=== PATIENT | male | born 1950 | race Caucasian/White ===

== ENCOUNTER 2023-10-17 09:36 | Inpatient (IN) ==
--- NOTE | 2023-10-15 11:15 | Anesthesiology Consultation ---
Date of Service October 15, 2023 Assessment & Plan (1) Encounter for pre-operative examination: - Infectious disease screening: Per assessment on 10/10/23: No known infectious disease contacts or current infectious disease symptoms. No noted Covid positive test result in past 90 days. - PCP visit (10/15/23): "The patient has been examined.. there are no medical condition known to me that preclude the patient from having the planned surgery ." - Preop testing: No surgeon-ordered BMP/coags received with preop testing, will order BMP/coags for DOS. Chart Review Chart Review: Acceptable Risk for Surgery (pending preop labs DOS) and Patient NOT seen in Pre Admission Testing History Surgery Operation Date: 10/17/23 11:15 Proposed Procedures p L3-S1 Decompression and Fusion, Spinal Cord Monitoring - Willy Brooke DO Height/Weight Height: 5 ft 8 in Weight: 86.183 kg Allergies Allergy/AdvReac Type Severity Reaction Status Date / Time No Known Allergies Allergy Verified 10/10/23 11:19 Medications Home Medications Medication Instructions Recorded Confirmed Last Taken acetaminophen 500 mg tablet 1,000 mg PO QAM 10/10/23 10/10/23 Unknown (Tylenol Extra Strength) cetirizine 10 mg chewable tablet 10 mg PO DAILY PRN Congestion 10/10/23 10/10/23 Unknown (Zyrtec) fenofibrate micronized 200 mg 200 mg PO QAM 10/10/23 10/10/23 Unknown capsule lamotrigine 200 mg tablet 200 mg PO QAM 10/10/23 10/10/23 Unknown meloxicam 15 mg tablet 15 mg PO DAILY 10/10/23 10/10/23 Unknown Past Medical History Medical History Spinal stenosis Prediabetes Diet controlled Skin cancer s/p removal from several locations Osteoarthritis Seasonal allergies Hyperlipidemia Sleep apnea CPAP Seizure x2 total, most recent 2012 Past Family History Family History Mother Diabetes Past Surgical History Surgical History Hx of LASIK History of colonoscopy H/O prostate biopsy Small areas of concern "Level 1 of 5" Under surveillance History of endoscopic sinus surgery Hx of oral surgery tooth extractions History of tonsillectomy Social History Smoking Status: Never smoker Do You Dip or Chew Tobacco: No Hx Alcohol Use: Yes Alcohol type: wine alcohol intake frequency: a few times a week Hx Substance Use: No substance use type: does not use Testing Laboratory Results 09/05/23 WBC 8.2 H/H 13.5/39.7 PLATELETS 307 UA negative URINE CULTURE no growth Electrocardiogram Date: 09/05/23 Findings: + NSR @ (63) Chest X-Ray Date: 09/04/23 Findings: + NAD
[~2023-10-17 09:36] MED LIST: ACETAMINOPHEN 500 MG TAB PO SCH; CeleBREX 200 MG CAP PO SCH; GABAPENTIN 300 MG CAP PO SCH; LR 60ML/HR IV SCH; ceFAZolin 2000MG 2,000 MG/15 ML SYR IV SCH
[2023-10-17] MEDS ORDERED: PROPOFOL IV EMULSION 10 MG/ML 20 ML VIAL IV ONE (10:42)
[2023-10-17] MEDS ORDERED: MIDAZOLAM HCL 1 MG/ML 2ML VIAL ONE (10:42)
[2023-10-17] MEDS ORDERED: DEXAMETHASONE SOD INJ 4 MG/ML VIAL ONE (10:42)
[2023-10-17] MEDS ORDERED: ONDANSETRON INJ 2 MG/ML 2 ML VIAL ONE (10:42)
[2023-10-17] MEDS ORDERED: LIDOCAINE 2% 2 ML VIAL/AMP(20MG/ML) INFIL ONE ×2 (10:42→10:44)
[2023-10-17 10:43] LABS: BUN Creatinine Ratio 14.8 (10-20); Calcium 10.1 mg/dl (8.6-10.3); Creatinine Clr Calc Pharmacy 53.3 ml/min; Est GFR (Non-African American) 54.4 ml/min; Potassium 4.1 mmol/L (3.5-5.1)
[2023-10-17] MEDS ORDERED: fentaNYL citrate PF 100 MCG/2 ML VIAL ONE ×2 (10:43→12:33)
[2023-10-17] MEDS ORDERED: ROCURONIUM BROMIDE 10 MG/ML 5 ML VIAL IV ONE ×10 (10:44)
[2023-10-17 10:51] LABS: Partial Thromboplastin Time 26.8 Seconds (21.0-31.0); Prothrombin Time 11.4 Seconds (9.0-12.0)
--- NOTE | 2023-10-17 11:26 | History & Physical Bridge Note ---
Date of Service October 17, 2023 History & Physical Bridge Note I have examined the patient, reviewed the History & Physical and in the interval since the performance of the History & Physical I have noted the following changes of clinical significance: no changes noted
--- NOTE | 2023-10-17 11:27 | History & Physical Report ---
Date of Service October 17, 2023 Assessment & Plan (1) Neurogenic claudication due to lumbar spinal stenosis: Plan: L3-S1 decompression and fusion History of Present Illness Chief Complaint: Chronic back and leg pain Primary Care Provider: NO PCP This is a 73-year-old male who presents with chronic persistent back and leg pain after failing course of nonoperative care is here for surgical invention. Allergies Allergy/AdvReac Type Severity Reaction Status Date / Time No Known Allergies Allergy Verified 10/17/23 10:33 Home Medications Medication Instructions Recorded Confirmed Type acetaminophen 500 mg tablet 1,000 mg PO QAM 10/10/23 10/17/23 History (Tylenol Extra Strength) cetirizine 10 mg chewable tablet 10 mg PO DAILY PRN Congestion 10/10/23 10/17/23 History (Zyrtec) fenofibrate micronized 200 mg 200 mg PO QAM 10/10/23 10/17/23 History capsule lamotrigine 200 mg tablet 200 mg PO QAM 10/10/23 10/17/23 History meloxicam 15 mg tablet 15 mg PO DAILY 10/10/23 10/17/23 History Past Med/Surg History Medical History Spinal stenosis Prediabetes Diet controlled Skin cancer s/p removal from several locations Osteoarthritis Seasonal allergies Hyperlipidemia Sleep apnea CPAP Seizure x2 total, most recent 2012 Surgical History Hx of LASIK History of colonoscopy H/O prostate biopsy Small areas of concern "Level 1 of 5" Under surveillance History of endoscopic sinus surgery Hx of oral surgery tooth extractions History of tonsillectomy Family History Mother Diabetes Social History Smoking Status: Never smoker Second Hand Exposure: No; Do You Dip or Chew Tobacco: No; Tobacco Cessation Education Requested by Patient: No Hx Alcohol Use: Yes Alcohol type: wine Hx Substance Use: No Preferred Language: Mexican Communication Ability: Effective Infirmary Attendant Required: No Beliefs That Will Affect Care: None Current Living Situation: Spouse Other Information That Helps Us Care for You: No Feels Safe at Home: Yes Safety Concerns: Feels Safe At This Time Assistive Devices: CPAP, Glasses and Hearing Aid - Bilateral Physical Exam Physical Exam: Patient is alert and oriented Heart regular rhythm Lungs clear Results & Data Results & Data Vital Signs (Past 12 Hours) Vital Signs Temp Pulse Resp BP Pulse Ox O2 Del Method 10/17/23 10:27 36.9 C 78 20 139/103 H 96 Room Air
[2023-10-17] MEDS ORDERED: ePHEDrine sulfate 50 MG/ML AMP IV PRN (11:31)
[2023-10-17] MEDS ORDERED: ATROPINE SULFATE 0.1 MG/ML 10ML SYR IV PRN (11:31)
[2023-10-17] MEDS ORDERED: PROMETHAZINE HCL 12.5 MG in SODIUM CHLORIDE 0.9% 50 ML IV PRN ×2 (11:31→15:51)
[2023-10-17] MEDS ORDERED: BUPIVACAINE/EPINEPHRINE 0.25% 1:200,000 30 ML VIAL ONE (11:40)
[2023-10-17] MEDS ORDERED: ceFAZolin 330 MG/ML 1 GM VIAL ONE (11:40)
[2023-10-17] MEDS ORDERED: SUGAMMADEX SODIUM 200 MG/2 ML VIAL IV ONE (12:26)
[2023-10-17] MEDS ORDERED: PHENYLEPHRINE HCL 10 MG/ML VIAL ONE ×2 (12:47→13:34)
[2023-10-17] MEDS ORDERED: FLOSEAL HEMOSTATIC MATRIX 10ML TOP ONE (12:51)
[2023-10-17] MEDS ORDERED: ESMOLOL HCL INJ 10 MG/ML 10ML VIAL IV ONE (13:55)
--- NOTE | 2023-10-17 14:31 | Operative Report ---
Post Operative Report Pre & Post Diagnosis Operation Date: 10/17/23 11:15 Pre-Op Diagnosis: Lumbar Region Spinal Stenosis with Neurogenic Claudication Spondylolisthesis L5-S1 Post-Op Diagnosis: Same I identified the patient and participated in the time-out.: Yes Procedure Operation Date: 10/17/23 11:15 Actual Procedures #1 lumbar decompression bilaterally facetectomies and foraminotomies L2-3, L3- L4, L4-5 and L5-S1. #2 posterior spinal fusion L3-S1. #3 placed posterior segmental instrumentation L3-S1. #4 interbody fusion L3-L4 L4-5 and L5-S1. #6 placement of Spira 13 x 26 mm at L3-L4, 13 x 26 mm at L4-L5 and 9 x 26 mm at L5- S1. #6 placement locally harvested morselized autograft and posterior gutters. #7 placement of I factor interbody space and infuse collagen sponge bone mass graft in the posterior lateral gutters. Surgeon Willy Brooke, Fixed Wing Pilot Dakotah Felton Estimated Blood Loss 400 Findings Consistent with Post-Op Diagnosis Specimens None Indications This is a 73-year-old male who presents above-mentioned diagnosis and failing course of nonoperative care is here for surgical invention. Description of Procedure Patient was met with identified informed consent obtained. Patient was then taken to the operative suite underwent patient placed in a prone position the [place] table top Jey frame. All bony prominences well-padded eyes inspected to ensure no external pressure placed upon them. This point the lumbar spine was prepped and draped in normal sterile fashion. Sharp dissection with assistance of Bovie cautery from down to and exposing the lamina transverse processes of L3 L4-5 and sacral ala bilaterally. Mondragon cephalad fashion complete laminectomy L5 L4 L3 partial and active L2 was performed including bilateral medial facetectomies and foraminotomies addressing severe spinal stenosis. Obvious bilateral pars defect at L5 was noted. After complete decompression pedicle screws were placed at L3-L4-L5 and S1 levels bilaterally with assistance of fluoroscopy and properly sized girma contoured and placed. By way of transforaminal approach on the left complete discectomy of L5-S1 was performed endplates curetted to subcortical bleeding bone and a 9 x 26 mm Spira cage with I factor tapped in position. Then proceeded to L4-L5 and again by way of a trans foraminal approach on the left pleat discectomy performed endplates guided to subcortical bleeding bone and a 13 x 26 mm Spira cage with I factor tapped in position. Lastly proceeded to L3-L4 and again by way of transforaminal approach on the left pleat discectomy performed endplates guided to subcortically and bone and a 13 x 26 mm Spira cage with I factor tapped in position. The rods were then compressed locked into final position bilaterally. The transverse processes of L3 L4-5 and sacral ala burred to subcortical bleeding bone. Infuse collagen sponge combined mass graft locally harvested morselized graft was placed in the posterior gutters. 15 round LADONNA drain inserted. The incision was then closed with 1 Vicryl to fascia 2-0 Vicryl subcutaneously and 4 Monocryl for final skin closure. Steri-Strips sterile dressing placed. Patient waken taken to PACU stable condition. Please note spinal cord monitoring was utilized at the procedure no changes noted. Lastly Dakotah Felton was present at the entire surgery involved the patient positioning complex portion of the surgery and final skin closure. I attest to the content of the Intraoperative Record and any orders documented therein. Any exceptions are noted below.
--- NOTE | 2023-10-17 15:01 | Fluoroscopy Report ---
FL lumbar spine 2-3V CLINICAL HISTORY: L3-S1 DECOMPRESSION AND FUSION COMPARISON STUDY: None. FLUOROSCOPY TIME: 31 seconds. Ka, r: 21.02 mGy FLUOROSCOPIC IMAGES: 3 FINDINGS: Fluoroscopy was provided during L3-L4, L4-L5 and L5-S1 discectomies with interbody spacer p lacement. Posterior decompression is noted. Bilateral pedicle screw fusion from L3 through S1 with in terconnecting rods is noted. Hardware is intact. IMPRESSION: Fluoroscopy provided during L3-S1 decompression and fusion. ACT 112: Negative or not required by law. Electronically signed by: Fili Suarez M.D. 10/17/2023 2:59 PM
--- NOTE | 2023-10-17 15:16 | Anesthesiology Progress Note ---
Date of Service October 17, 2023 Anesthesia Post Procedure Vital Signs Vital Signs: Temp Pulse Pulse Resp BP Pulse Ox O2 Del Method 10/17/23 15:10 66 16 145/91 H 100 Oxymask 10/17/23 15:00 72 14 149/87 H 100 Oxymask 10/17/23 14:51 36.2 C L 66 16 145/79 H 98 Oxymask 10/17/23 10:27 36.9 C 78 20 139/103 H 96 Room Air O2 Flow Rate 10/17/23 15:10 8 10/17/23 15:00 8 10/17/23 14:51 8 10/17/23 10:27 Transfer of Care Handoff Completed per policy Notes Mental Status: alert / awake / arousable Patient Amnestic to Procedure: Yes Nausea / Vomiting: adequately controlled Pain: adequately controlled Airway Patency, RR, SpO2: stable & adequate BP & HR: stable & adequate Hydration State: stable & adequate Anesthetic Complications: no major complications apparent and Pt Satisfied with anesthetic care
[2023-10-17] MEDS: HYDROmorphone INJ 1 MG/ML SYRINGE IV PRN ×2 (15:18→15:23)
[2023-10-17] MEDS ORDERED: DO NOT ADMINISTER PNEUMOCOCCAL VACCINE PRN (15:51)
[2023-10-17] MEDS ORDERED: DO NOT ADMINISTER FLU VACCINE PRN (15:51)
[2023-10-17] MEDS ORDERED: ACETAMINOPHEN 1,000 MG/100 ML VIAL IV PRN (15:51)
[2023-10-17] MEDS ORDERED: LORazepam 0.5 MG TAB PO PRN (15:51)
[2023-10-17] MEDS ORDERED: MAGNESIUM HYDROXIDE SUSP 30 ML UDC PO PRN (15:51)
[2023-10-17] MEDS ORDERED: ALUMINUM/MAGNESIUM SUSP 30 ML UDC PO PRN (15:51)
[2023-10-17] MEDS ORDERED: traMADol HCL 50 MG TABLET PO PRN (15:51)
[2023-10-17] MEDS ORDERED: ONDANSETRON 4 MG OD TAB PO PRN (15:51)
[2023-10-17] MEDS ORDERED: LORazepam 0.5 MG in SYRINGE 0.25 ML IV PRN (15:51)
[2023-10-17] MEDS ORDERED: hydrOXYzine HCl 25 MG TAB PO PRN (15:51)
[2023-10-17] MEDS ORDERED: METOCLOPRAMIDE HCL INJ 5 MG/ML 2 ML VIAL IV PRN (15:51)
[2023-10-17] MEDS ORDERED: HYDROmorphone INJ 1 MG/ML SYRINGE IV PRN (15:51)
[2023-10-17] MEDS ORDERED: NALOXONE HCL 0.4 MG/1 ML VIAL/CARP IV PRN (15:51)
[2023-10-17] MEDS ORDERED: ACETAMINOPHEN 500 MG TAB PO PRN (15:51)
[2023-10-17] MEDS ORDERED: HYDROmorphone INJ 0.5 MG/0.5 ML SYR IV PRN (15:51)
[2023-10-17] MEDS ORDERED: bisacodyL 10 MG SUPP PR PRN (15:51)
[2023-10-17] MEDS ORDERED: SOD PHOSPHATE/SOD BIPHOSPHATE ENEMA 132 ML BTL PR PRN (15:51)
[2023-10-17] MEDS ORDERED: FAMOTIDINE 20 MG TAB PO PRN (15:51)
[2023-10-17] MEDS ORDERED: diphenhydrAMINE Capsule 25 MG CAP PO PRN (15:51)
[2023-10-17] MEDS ORDERED: ONDANSETRON INJ 2 MG/ML 2 ML VIAL IV PRN (15:51)
[2023-10-17] MEDS ORDERED: LORATADINE 10 MG TAB PO PRN (16:15)
[2023-10-17] MEDS: LACTATED RINGER'S 1,000 ML IV SCH ×2 (17:14→20:02)
--- NOTE | 2023-10-17 17:35 | Hospitalist Consultation ---
Date of Consultation October 17, 2023 Assessment & Plan (1) Neurogenic claudication due to lumbar spinal stenosis: - Pain management, bowel regimen and DVT ppx per the primary team - PT/OT consults, pt is planning on outpatient therapy - Follow am CBC to monitor for acute blood loss, last hemoglobin was 13.5/39.7 per anesthesiology consultation with outpatient testing done on 09/05/23. Follow am labs (2) Prediabetes: -Diet controlled (3) Seizure: -Continue lamotrigine 200 mg daily, last seizure was in 2012 (4) Sleep apnea: -CPAP from home, respiratory to help set up tonight (5) Hyperlipidemia: -Continue fenofibrate daily DVT PPx: teds, scds Lines: 2 PIV CODE: Full code FEN/GI: Regular diet per primary service Dispo: From home, likely to remain in the hospital x 1-2 days Thank you for involving us in the care of Mr. Montgomery. If you have any questions or concerns please do not hesitate to call. At this time medicine will follow along. Supervising Physician Co-Signing Physician Notes Attending addendum: The patient was seen and examined in medical floor He is a status post L3-S1 lumbar decompression and fusion Remains drowsy secondary to medication and anesthetics On examination No apparent distress at rest Remains hemodynamically stable with clear chest and normal heart sounds without murmur Extremities no edema His labs and imaging studies reviewed Status post L3-S1 decompression and fusion Remains medically stable We will monitor labs and hemoglobin Agree with assessment plan as outlined above by Penny Alvarado History of Present Illness Reason for Consultation: Medical management Requesting Physician: Dr. Brooke Attending Physician: Willy Brooke DO History of Present Illness This is a 73-year-old male with PMHx of HLD, osteoarthritis, prediabetes, sleep apnea on CPAP, seizure disorder with his last seizure being in 2012 who present ed to the hospital with routine scheduled for L2-S1 lumbar decompression fusion by Dr. Brooke on 10/17/2023. Patient is falling asleep easily during our visit but awakens easily, his is present at bedside. He denies any significant pain, has some mild low back pain from the procedure, no numbness or tingling, is able to move his toes. Patient has tolerated a clear liquid diet for dinner without any difficulty, last bowel movement was yesterday. He is asking when his Lai catheter can be removed and we discussed that it would likely be tomorrow morning. He took all his morning medications as instructed. Allergies Allergy/AdvReac Type Severity Reaction Status Date / Time No Known Allergies Allergy Verified 10/17/23 10:33 Home Medications Medication Instructions Recorded Confirmed Type acetaminophen 500 mg tablet 1,000 mg PO QAM 10/10/23 10/17/23 History (Tylenol Extra Strength) cetirizine 10 mg chewable tablet 10 mg PO DAILY PRN Congestion 10/10/23 10/17/23 History (Zyrtec) fenofibrate micronized 200 mg 200 mg PO QAM 10/10/23 10/17/23 History capsule lamotrigine 200 mg tablet 200 mg PO QAM 10/10/23 10/17/23 History meloxicam 15 mg tablet 15 mg PO DAILY 10/10/23 10/17/23 History Patient History Medical History (Updated 10/17/23 @ 17:40 by Penny Ortiz PA-C) Spinal stenosis Prediabetes Diet controlled Skin cancer s/p removal from several locations Osteoarthritis Seasonal allergies Hyperlipidemia Sleep apnea CPAP Seizure x2 total, most recent 2012 Surgical History Hx of LASIK History of colonoscopy H/O prostate biopsy Small areas of concern "Level 1 of 5" Under surveillance History of endoscopic sinus surgery Hx of oral surgery tooth extractions History of tonsillectomy Family History Mother Diabetes Social History Smoking Status: Never smoker Second Hand Exposure: No; Do You Dip or Chew Tobacco: No; Tobacco Cessation Education Requested by Patient: No Hx Alcohol Use: Yes Alcohol type: wine Hx Substance Use: No Preferred Language: Chinese Communication Ability: Effective Quality Assurance Specialist Required: No Beliefs That Will Affect Care: None Current Living Situation: Spouse Other Information That Helps Us Care for You: No Feels Safe at Home: Yes Safety Concerns: Feels Safe At This Time Assistive Devices: CPAP, Glasses and Hearing Aid - Bilateral Review of Systems Review of Systems: Constitutional: No fever, sweats or chills Eyes: No diplopia, no worsening or blurred vision ENT: normal hearing, no trouble swallowing Respiratory: No cough, sputum, dyspnea at rest or on exertion Cardiovascular: No chest pain, tightness or palpitations Abdomen: No pain, nausea, vomiting, diarrhea or constipation Musculoskeletal: No joint pain, calf pain, swelling Neurologic: No weakness, numbness/tingling, or balance problems Psychiatric: No anxiety or depression Skin: No rash or itch Physical Exam Physical Exam: General: awake, alert, no apparent distress Head: Normocephalic, atraumatic ENT: PERRL, EOMI, no pharyngeal exudate, mucous membranes moist Chest: Clear to auscultation, on room air, no adventitious breath sounds Cardiac: Regular rate and rhythm, no murmur, no JVD, normal peripheral pulses, good capillary refill Abdominal: NABS x 4 quadrants, soft, nondistended, nontender to palpation, no rebound or guarding Back: Dressing C/D/I, LADONNA drain in place draining bloody outs : Lai catheter draining clear yellow urine Extremities: Normal inspection, no peripheral edema or erythema, calfs nontender to palpation Psych: Normal mood and affect Neuro: AAO x 3, strength intact bilaterally and rated 5/5, no motor deficits, speech is clear, no peripheral sensory deficits Results & Data Results & Data Vital Signs (Past 12 Hours) Vital Signs Temp Pulse Pulse Pulse Resp BP Pulse Ox 10/17/23 16:59 36.4 C L 77 18 167/84 H 95 10/17/23 16:27 73 16 165/95 H 99 10/17/23 16:00 36.7 C 74 16 175/85 H 99 10/17/23 15:40 36.5 C 70 12 141/72 H 95 10/17/23 15:30 67 12 161/84 H 97 10/17/23 15:20 71 17 156/97 H 96 10/17/23 15:10 66 16 145/91 H 100 10/17/23 15:00 72 14 149/87 H 100 10/17/23 14:51 36.2 C L 66 16 145/79 H 98 10/17/23 10:27 36.9 C 78 20 139/103 H 96 O2 Del Method O2 Flow Rate 10/17/23 16:59 Room Air 10/17/23 16:27 Room Air 10/17/23 16:00 Room Air 10/17/23 15:40 Room Air 10/17/23 15:30 Room Air 10/17/23 15:20 Room Air 10/17/23 15:10 Oxymask 8 10/17/23 15:00 Oxymask 8 10/17/23 14:51 Oxymask 8 10/17/23 10:27 Room Air Laboratory Results 10/17/23 10:08 PT 11.4 INR 1.0 APTT 26.8 PTT Ratio 1.0 Sodium 142 Potassium 4.1 Chloride 110 H Carbon Dioxide 25 Anion Gap 7 BUN 19 Creatinine 1.28 Est Cr Clr Drug Dosing 53.3 Est GFR ( Amer) 63.0 Est GFR (Non-Af Amer) 54.4 BUN/Creatinine Ratio 14.8 Glucose 104 H Calcium 10.1 Blood Type O Positive Antibody Screen NEGATIVE Crossmatch See Detail
[2023-10-17] MEDS: ceFAZolin 2000MG 2,000 MG/15 ML SYR IV SCH (21:54)
[2023-10-17] MEDS: DOCUSATE SODIUM/SENNA 50/8.6MG TAB PO SCH (21:54)
[2023-10-18] MEDS: oxyCODONE HCL IR 5 MG TAB (IMMEDIATE RELEASE) PO PRN ×2 (03:34→14:21)
[2023-10-18] MEDS: LACTATED RINGER'S 1,000 ML IV SCH (05:20)
[2023-10-18] MEDS: POLYETHYLENE (MIRALAX) 17 GM PACK PO SCH ×4 (06:03→23:08)
[2023-10-18] MEDS: ceFAZolin 2000MG 2,000 MG/15 ML SYR IV SCH (06:03)
[2023-10-18 07:38] LABS: Basophils # (auto) 0.03 K/uL (0.00-0.20); Basophils % (auto) 0.2 %; Hematocrit (blood only) 35.6 % (42.0-52.0); Immature Granulocytes % (auto) 1.1 %; Lymphocytes # (auto) 1.57 K/uL (1.20-3.40); Lymphocytes % (auto) 8.9 %; Mean Corpuscular Hemoglobin 31.1 pg (25.0-34.0); Mean Corpuscular Hgb Conc 33.7 g/dL (32.0-36.0); Mean Corpuscular Volume 92.2 fL (80.0-100.0); Mean Platelet Volume 9.6 fL (9.4-12.4); Monocytes # (auto) 1.56 K/uL (0.11-0.59); Monocytes % (auto) 8.8 %; Neutrophils # (auto) 14.28 K/uL (1.40-6.50); Platelet Count 259 K/uL (130-400); RDW Coefficient of Variation 13.4 % (11.5-14.5); RDW Standard Deviation 45.3 fL (36.4-46.3); Red Blood Count 3.86 M/uL (4.70-6.10); White Blood Count 17.64 K/ul (4.8-10.8)
[2023-10-18] MEDS: dexAMETHasone 6 MG in SYRINGE 0 ML IV SCH (07:53)
[2023-10-18 07:56] LABS: Potassium 3.9 mmol/L (3.5-5.1)
[2023-10-18 08:02] LABS: BUN Creatinine Ratio 16.8 (10-20); Creatinine Clr Calc Pharmacy 57.3 ml/min; Est GFR (African American) 68.8 ml/min; Est GFR (Non-African American) 59.4 ml/min
[2023-10-18] MEDS: lamoTRIgine 100 MG TAB PO SCH (08:19)
--- NOTE | 2023-10-18 08:30 | Orthopedic Progress Note ---
Date of Service October 18, 2023 Assessment & Plan (1) Neurogenic claudication due to lumbar spinal stenosis: Plan: This time initiate physical therapy monitor his LADONNA output hopefully discharge home Friday. Admission and Anticipated Discharge Date Admission Date: October 17, 2023 Subjective Back pain controlled leg symptoms improved Physical Exam Physical Exam: Patient is currently in bed. Appears comfortable. Is constricted testing. Results & Data Vital Signs (Past 12 Hours) Vital Signs Temp Pulse Resp BP Pulse Ox O2 Del Method 10/18/23 07:14 36.5 C 86 16 152/82 H 97 Room Air 10/18/23 03:50 36.5 C 75 20 148/85 H 94 Room Air 10/18/23 00:10 36.4 C L 76 20 124/72 93 Room Air
[2023-10-18] MEDS ORDERED: dexAMETHasone 8 MG in SYRINGE 0 ML IV SCH (09:00)
--- NOTE | 2023-10-18 17:25 | Hospitalist Progress Note ---
Date of Service October 18, 2023 Assessment & Plan (1) Neurogenic claudication due to lumbar spinal stenosis: Plan: Pt s/p lumbar decompression, posterior spinal fusion L3-S1 on 10/17 - Pain management, bowel regimen and DVT ppx per the primary team - PT/OT -Hgb post op stable (2) Prediabetes: Plan: -Diet controlled (3) Seizure: Plan: -Continue lamotrigine 200 mg daily, last seizure was in 2012 (4) Sleep apnea: Plan: -CPAP from home, respiratory to help set up tonight (5) Hyperlipidemia: Plan: -Continue fenofibrate daily DVT PPx: per primary team, currently SCD CODE: Full code FEN/GI: Regular diet per primary service Thank you for this consultation. We will follow the patient with you during their hospital stay. You can reach a member of the [facility] Hospitalist Team 23/06 via the hospitalist role on tiger text. Admission and Anticipated Discharge Date Admission Date: October 17, 2023 Subjective Pt seen with partner at bedside. States that he has been up and moving. has been passing gas, no BM yet. Denies SOB, has some slight back pain Review of Systems Review of Systems: All systems reviewed & are unremarkable except as noted in Subjective Physical Exam Physical Exam: General: Alert, oriented. No acute distress Skin: No noted rashes or bruises Psych: Appropriate mood and affect Neuro: difficulty or soreness with movements HEENT: NC/AT Chest: Nontender to palpation. CV: RRR, Normal s1, s2. No murmurs appreciated Resp: Breath sounds clear bilaterally, no increased effort of breathing. Abdomen: Soft, nontender, nondistended. Extremities: No edema in lower extremities bilaterally. Results & Data Results & Data Vital Signs (Past 12 Hours) Vital Signs Temp Pulse Resp BP Pulse Ox O2 Del Method 10/18/23 07:14 36.5 C 86 16 152/82 H 97 Room Air 10/18/23 03:50 36.5 C 75 20 148/85 H 94 Room Air 10/18/23 00:10 36.4 C L 76 20 124/72 93 Room Air
[2023-10-18] MEDS: DOCUSATE SODIUM/SENNA 50/8.6MG TAB PO SCH (20:02)
--- OUTSIDE RECORDS SUMMARY | 2023-10-18 21:36 | External Medical Summary | Continuity of Care Document ---
Author Name Unknown Organization [facility] [address] [place] [address] NELDA CASEY [id number] Care Team Providers Care Flight Test Supervisor Name Role Phone Avel Hinds Primary Care Physician [phone] [id number] Date(s): 06/23/23 - 06/23/23 [facility] 100 [facility] Dermatology [address], [address], [address] [place] Webber [address] [phone] Encounter Diagnosis History of basal cell carcinoma--back/2015, right forehead/2017, left calf, right mcnamara x2/2018, back, left ankle /2019(Discharge Diagnosis) - 06/20/23 History of melanoma--0.37mm/back/2011, 0.4mm/chest/2012(Discharge Diagnosis) - 06/20/23 History of squamous cell carcinoma--scalp,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(Discharge Diagnosis) - 06/20/23 Erosive Pustular Dermatosis(Discharge Diagnosis) - 06/23/23 Discharge Disposition: Home or Self Care Attending Physician: MD Delgadillo James G Referring Physician: MD Delgadillo James G Allergies, Adverse Reactions, Alerts No Known Allergies Assessment and Plan Extracted from: Title:Clinical Document Author:MD Delgadillo James G Date:06/23/23 DERMATOLOGY OUTPATIENT NOTE Name: ROSY FINNEGAN Patient Number: [id number] : 1950 Date of Service: 06/23/2023 Primary Care Physician: MD Hinds Ernest Michael Chief Complaint: skin check HPI: _ history of malignant melanoma and non melanoma skin cancer. no sunburns. takes vitamin d and nicotinamide. Review of Systems: _ general and skin review of systems negative other than what is in history of present illness and past medical history. sciatica left leg. Current Home Meds: (Last Updated 06/23 15:51) acetaminophen (Tylenol) daily for arthritis cetirizine (ZyrTEC) as needed cholecalciferol (cholecalciferol 1000 intl units (25 mcg) oral capsule) 1000 Unknown, oral clobetasol topical (clobetasol 0.05% topical ointment) 1 appl topical Daily fenofibrate (fenofibrate 200 mg oral capsule) 200 mg PO Daily fluticasone nasal (Flonase) lamoTRIgine (lamoTRIgine 200 mg oral tablet) 200 Unknown, oral meloxicam (meloxicam 15 mg oral tablet) 30 each, TAKE 1 TABLET (15 MG TOTAL) BY MOUTH DAILY. Responsible Provider: MANUEL ADAN 02/10 09:55 meloxicam (Mobic 15 mg oral tablet) 15 mg PO 6 Refill(s), Take 1 tablet (15 mg total) by mouth daily. niacinamide (niacinamide 500 mg oral tablet) PO Daily sildenafil (Viagra 100 mg oral tablet) 100 mg PO 12 Refill(s), Take 1 tablet (100 mg total) by mouth daily as needed for erectile dysfunction. 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 red , vascular papules generalized. no enlarged lymph nodes head, neck, axillae, groin. ASSESSMENT: _ PLAN: _ 1 ) _ malignant melanoma, non melanoma skin cancer - sun protection, vitamin d, nicotinamide 500mg twice a day(optional) and periodic self exam. signs of skin cancer discussed 2 ) _ seborrheic keratoses, ridley angiomas - no treatment 3 ) _ return to clinic as necessary and 6 months 4 ) _ 5 ) _ 6 ) _ Medications cholecalciferol 1000 intl units (25 mcg) oral capsule Start: 01/31/20 14:33:00 EST, 1000 Unknown, oral Start Date: 01/31/20 Status: Ordered clobetasol 0.05% topical ointment Start: 11/16/15 15:15:00, 1 appl, topical, Daily, Disp# 60 g, Refills: 1, Pharmacy: [facility]/pharmacy #[id number] Start Date: 11/16/15 Stop Date: 01/15/16 Status: Ordered fenofibrate 200 mg oral capsule Start: 07/02/12 10:40:00, 1 cap, PO, Daily Start Date: 07/02/12 Status: Ordered Flonase Start: 06/23/23 15:50:00 EDT Start Date: 06/23/23 Status: Ordered lamoTRIgine 200 mg oral tablet Start: 01/31/20 14:33:00 EST, 200 Unknown, oral Start Date: 01/31/20 Status: Ordered meloxicam 15 mg oral tablet Start: 02/10/23 9:55:00 EDT, 30 each, TAKE 1 TABLET (15 MG TOTAL) BY MOUTH DAILY. Start Date: 02/10/23 Status: Ordered Memory suplement Start: 06/23/23 15:51:00 EDT, Memory suplement, daily Start Date: 06/23/23 Status: Ordered Mobic 15 mg oral tablet Start: 02/10/23 9:55:00 EDT, 15 mg =, PO, 6 Refill(s), Take 1 tablet (15 mg total) by mouth daily. Start Date: 02/10/23 Status: Ordered niacinamide 500 mg oral tablet Start: 07/17/22 11:23:00 EDT, 2 tabs, PO, Daily Start Date: 07/17/22 Status: Ordered turmeric Start: 06/23/23 15:50:00 EDT Start Date: 06/23/23 Status: Ordered Tylenol Start: 06/23/23 15:51:00 EDT, daily for arthritis Start Date: 06/23/23 Status: Ordered unlisted medication Start: 02/10/23 9:55:00 EDT, 4 kit Start Date: 02/10/23 Status: Ordered Viagra 100 mg oral tablet Start: 02/10/23 9:55:00 EDT, 100 mg =, PO, 12 Refill(s), Take 1 tablet (100 mg total) by mouth daily as needed for erectile dysfunction. Start Date: 02/10/23 Status: Ordered ZyrTEC Start: 06/23/23 15:50:00 EDT, as needed Start Date: 06/23/23 Status: Ordered Mental Status 06/23/23 Barriers to Learning one year None evide nt Mandatory Health Literacy Documentation Yes Health Literacy Communication Barriers N ever Primary Language Irish Problem List Condition Confirmation Course Effective Dates Status Health St atus Informant Complaint Confirmed 12/08/15 Active Erosive Pustular Dermatosis Confirmed Active Forgetful Confirmed 12/07/14 Active History of melanoma--0.37mm/b ack/2011, 0.4mm/chest/2012 Confirmed Active History of basal cell carcinoma--back/ 16, right forehead/2017, left calf, right mcnamara x2, back, left ankle /2019 Confirmed Active History of squamous cell carcinoma--scalp,i n situ/2018 Confirmed Active Seborrheic keratoses Confirmed Active Seizure Confirmed 07/22/13 Active Diagnosis Diagnosis Type Effective Dates Health Status Clinical Service Informant History of squamous cell carcinoma--scalp, 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 Discharge Diagnosis 06/20/23 History of melanoma--0.37mm/ back/2011, 0.4mm/chest/2012 Discharge Diagnosis 06/20/23 History of basal cell carcinoma--back/2 016, right forehead/2017, left calf, right mcnamara x2/2018, back, left ankle /2019 Discharge Diagnosis 06/20/23 Erosive Pustular Dermatosis Discharge Diagnosis 06/23/23 Procedures Procedure Date Related Diagnosis Body Site Status Surgery 1 12/2020 Completed Excision 2 04/19/20 Completed Surgery 3 04/18/20 Completed Mohs micrographic surgery 4 08/06/18 Completed Desiccation of skin lesion 5 04/30/16 Completed Excision 6 Completed Excision of melanoma Comp leted 1Dental surgery 2BCC X1 re-excision 3Molar tooth extracted 4BCC 5BCC 6scc and bcc Social History Social History Type Response Smoking Status Never smoked cigaret daina Sex Male Dermatology Outpatient Note * MD Elie, Alec Escobar: PERFORM Event Display: Dermatology Outpt Note Authored Date: [id number] DERMATOLOGY OUTPATIENT NOTE Name: ROSY FINNEGAN Patient Number: [id number] : 1950 Date of Service: 06/23/2023 Primary Care Physician: MD Hinds Ernest Michael Chief Complaint: skin check HPI: _ history of malignant melanoma and non melanoma skin cancer. no sunburns. takes vitamin d andnicotinamide. Review of Systems: _ general and skin review of systems negative other than what is in history of present illness and past medical history. sciatica left leg. Current Home Meds: (Last Updated 06/23 15:51) acetaminophen (Tylenol) daily for arthritis cetirizine (ZyrTEC) as needed cholecalciferol (cholecalciferol 1000 intl units (25 mcg) oral capsule) 1000 Unknown, oral clobetasol topical (clobetasol 0.05% topical ointment) 1 appl topical Daily fenofibrate (fenofibrate 200 mg oral capsule) 200 mg PO Daily fluticasone nasal (Flonase) lamoTRIgine (lamoTRIgine 200 mg oral tablet) 200 Unknown, oral meloxicam (meloxicam 15 mg oral tablet) 30 each, TAKE 1 TABLET (15 MG TOTAL) BY MOUTH DAILY. Responsible Provider: MANUEL ADAN 02/10 09:55 meloxicam (Mobic 15 mg oral tablet) 15 mg PO 6 Refill(s), Take 1 tablet (15 mg total) by mouth daily. niacinamide (niacinamide 500 mg oral tablet) PO Daily sildenafil (Viagra 100 mg oral tablet) 100 mg PO 12 Refill(s), Take 1 tablet (100 mg total) by mouth daily as needed for erectile dysfunction. 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 red , vascular papules generalized. no enlarged lymph nodes head, neck, axillae, groin. ASSESSMENT: _ PLAN: _ 1 ) _ malignant melanoma, non melanoma skin cancer - sun protection, vitamin d, nicotinamide 500mg twice a day(optional) and periodic self exam. signs of skin cancer discussed 2 ) _ seborrheic keratoses, ridley angiomas - no treatment 3 ) _ return to clinic as necessary and 6 months 4 ) _ 5 ) _ 6 ) _ Electronic Signature on File CC: Avel Hinds MD [place] [id number] * CC: Derek Vasquez MD [facility]. [address] [place] [address] * Electronically Reviewed/Signed by: Alec Delgadillo Jr., MD Author Signature Dt/Tm:06/23/2023 04:15 PM Department of Dermatology J Patient Care team information Care Team Personnel Name: MD Guzman, Avel Claire Position: Referring Member Role: Primary Care Provider Address: Address: [place] [address] [place] Care Team Related Persons Name: MADIE FINNEGAN Address: home No Address Provided
[2023-10-19] MEDS: oxyCODONE HCL IR 5 MG TAB (IMMEDIATE RELEASE) PO PRN ×4 (02:15→19:29)
[2023-10-19] MEDS: POLYETHYLENE (MIRALAX) 17 GM PACK PO SCH ×4 (06:13→23:51)
[2023-10-19] MEDS: dexAMETHasone 6 MG in SYRINGE 0 ML IV SCH (07:30)
[2023-10-19] MEDS: lamoTRIgine 100 MG TAB PO SCH (07:31)
--- NOTE | 2023-10-19 07:41 | Orthopedic Progress Note ---
Date of Service October 19, 2023 Assessment & Plan (1) Neurogenic claudication due to lumbar spinal stenosis: Plan: Patient is doing well postop day #2. I encouraged him to continue to stand and walk. He needs to continue p.o. intake. We will continue with GI DVT prophylaxis as well as pain control measures. He will likely be able to be discharged home tomorrow. Admission and Anticipated Discharge Date Admission Date: October 17, 2023 Subjective Patient is seen bedside in room 317. He states he is doing okay at this point. An episode of left leg pain that went down to his knee overnight. He thinks he slept in the wrong position. He is more comfortable when he stands and walks. He is not having right-sided pain. He has had no fevers or chills. Physical Exam Physical Exam: On exam the patient standing walking with his wheeled walker. His LADONNA drain is in place and holding suction is at 20 cc/h on the last shift and 55 on the previous. He is alert and oriented. His strength and sensation are both intact his calves are supple nontender his abdomen soft and nontender. His visual quesada are grossly intact. Cardiovascular exam reveals no gross abnormalities Results & Data Vital Signs (Past 12 Hours) Vital Signs Temp Pulse Resp BP Pulse Ox O2 Del Method 10/18/23 19:56 36.8 C 67 16 156/76 H 97 Room Air
[2023-10-19 09:10] LABS: Basophils # (auto) 0.04 K/uL (0.00-0.20); Basophils % (auto) 0.3 %; Eosinophils # (auto) 0.04 K/uL (0.00-0.50); Eosinophils % (auto) 0.3 %; Hematocrit (blood only) 37.5 % (42.0-52.0); Hemoglobin 12.3 g/dl (14.0-18.0); Immature Granulocytes # (auto) 0.08 K/uL (0.01-0.20); Immature Granulocytes % (auto) 0.6 %; Lymphocytes # (auto) 2.15 K/uL (1.20-3.40); Lymphocytes % (auto) 14.9 %; Mean Corpuscular Hemoglobin 30.9 pg (25.0-34.0); Mean Corpuscular Hgb Conc 32.8 g/dL (32.0-36.0); Mean Corpuscular Volume 94.2 fL (80.0-100.0); Mean Platelet Volume 9.6 fL (9.4-12.4); Monocytes # (auto) 1.33 K/uL (0.11-0.59); Monocytes % (auto) 9.2 %; Neutrophils # (auto) 10.79 K/uL (1.40-6.50); Neutrophils % (auto) 74.7 %; Platelet Count 263 K/uL (130-400); RDW Coefficient of Variation 13.5 % (11.5-14.5); RDW Standard Deviation 46.9 fL (36.4-46.3); Red Blood Count 3.98 M/uL (4.70-6.10); White Blood Count 14.43 K/ul (4.8-10.8)
[2023-10-19 09:29] LABS: Albumin Globulin Ratio 1.6 (0.9-2); Albumin Level 4.1 gm/dl (3.4-5.0); BUN Creatinine Ratio 17.9 (10-20); Bilirubin,Total 0.9 mg/dl (0.2-1.0); Calcium 9.3 mg/dl (8.6-10.3); Creatinine Clr Calc Pharmacy 55.4 ml/min; Est GFR (African American) 66.1 ml/min; Est GFR (Non-African American) 57.1 ml/min; Globulin 2.5 gm/dl (2.5-4.0); Magnesium 1.9 mg/dl (1.7-2.4); Phosphorus 1.9 mg/dl (2.5-4.9); Potassium 3.6 mmol/L (3.5-5.1); Total Protein 6.6 gm/dl (6.0-8.3)
--- NOTE | 2023-10-19 16:42 | Hospitalist Progress Note ---
Date of Service October 19, 2023 Assessment & Plan (1) Neurogenic claudication due to lumbar spinal stenosis: Plan: Pt s/p lumbar decompression, posterior spinal fusion L3-S1 on 10/17 - Pain management, bowel regimen and DVT ppx per the primary team - PT/OT -Hgb post op stable (2) Prediabetes: Plan: -Diet controlled (3) Seizure: Plan: -Continue lamotrigine 200 mg daily, last seizure was in 2012 (4) Sleep apnea: Plan: -CPAP from home, respiratory to help set up tonight (5) Hyperlipidemia: Plan: -Continue fenofibrate daily DVT PPx: per primary team, currently SCD CODE: Full code FEN/GI: Regular diet per primary service Thank you for this consultation. We will follow the patient with you during their hospital stay. You can reach a member of the [facility] Hospitalist Team 23/06 via the hospitalist role on tiger text. Admission and Anticipated Discharge Date Admission Date: October 17, 2023 Subjective Pt seen in the AM. Sitting in bed, states she did not sleep well overnight. Having back pain. Review of Systems Review of Systems: All systems reviewed & are unremarkable except as noted in Subjective Physical Exam Physical Exam: General: Alert, oriented. No acute distress Skin: No noted rashes or bruises Psych: Appropriate mood and affect Neuro: difficulty or soreness with movements HEENT: NC/AT Chest: Nontender to palpation. CV: RRR, Normal s1, s2. No murmurs appreciated Resp: Breath sounds clear bilaterally, no increased effort of breathing. Abdomen: Soft, nontender, nondistended. Extremities: No edema in lower extremities bilaterally. Results & Data Results & Data Vital Signs (Past 12 Hours) Vital Signs Temp Pulse Resp BP Pulse Ox O2 Del Method 10/19/23 15:31 36.6 C 83 16 132/76 99 Room Air 10/19/23 07:00 37.1 C 86 16 144/84 H 95 Room Air
[2023-10-19] MEDS: DOCUSATE SODIUM/SENNA 50/8.6MG TAB PO SCH (19:29)
[2023-10-19] MEDS ORDERED: POTASSIUM PHOS 3 MMOL/1 ML INFUSION IV STA (21:37)
[2023-10-19] MEDS ORDERED: POTASSIUM PHOSPHATE 24 MMOL in SODIUM CHLORIDE 0.9% 500 ML IV ONE (22:00)
[2023-10-20] MEDS: POLYETHYLENE (MIRALAX) 17 GM PACK PO SCH (05:55)
[2023-10-20] MEDS: oxyCODONE HCL IR 5 MG TAB (IMMEDIATE RELEASE) PO PRN (06:32)
[2023-10-20 06:45] LABS: Basophils # (auto) 0.06 K/uL (0.00-0.20); Basophils % (auto) 0.4 %; Eosinophils # (auto) 0.05 K/uL (0.00-0.50); Eosinophils % (auto) 0.4 %; Hematocrit (blood only) 34.1 % (42.0-52.0); Hemoglobin 11.4 g/dl (14.0-18.0); Immature Granulocytes # (auto) 0.08 K/uL (0.01-0.20); Immature Granulocytes % (auto) 0.6 %; Lymphocytes % (auto) 21.5 %; Mean Corpuscular Hemoglobin 31.3 pg (25.0-34.0); Mean Corpuscular Hgb Conc 33.4 g/dL (32.0-36.0); Mean Corpuscular Volume 93.7 fL (80.0-100.0); Mean Platelet Volume 9.8 fL (9.4-12.4); Monocytes # (auto) 1.54 K/uL (0.11-0.59); Monocytes % (auto) 11.4 %; Neutrophils # (auto) 8.85 K/uL (1.40-6.50); Neutrophils % (auto) 65.7 %; Platelet Count 258 K/uL (130-400); RDW Coefficient of Variation 13.6 % (11.5-14.5); RDW Standard Deviation 46.7 fL (36.4-46.3); Red Blood Count 3.64 M/uL (4.70-6.10); White Blood Count 13.48 K/ul (4.8-10.8)
[2023-10-20] MEDS: lamoTRIgine 100 MG TAB PO SCH (07:33)
[2023-10-20] MEDS: dexAMETHasone 6 MG in SYRINGE 0 ML IV SCH (07:34)
[2023-10-20 09:09] LABS: Albumin Globulin Ratio 1.5 (0.9-2); Albumin Level 3.7 gm/dl (3.4-5.0); BUN Creatinine Ratio 18.3 (10-20); Bilirubin,Total 0.7 mg/dl (0.2-1.0); Calcium 9.3 mg/dl (8.6-10.3); Creatinine Clr Calc Pharmacy 65.6 ml/min; Est GFR (Non-African American) 69.9 ml/min; Globulin 2.4 gm/dl (2.5-4.0); Potassium 3.7 mmol/L (3.5-5.1); Total Protein 6.1 gm/dl (6.0-8.3)
--- NOTE | 2023-10-20 09:46 | Discharge Summary ---
Date of Service October 20, 2023 Admission HPI Per Admitting Provider This is a 73-year-old male who presents with chronic persistent back and leg pain after failing course of nonoperative care is here for surgical invention. Principal Diagnosis Lumbar spinal stenosis with neurogenic claudication Discharge Data Allergies Allergy/AdvReac Type Severity Reaction Status Date / Time No Known Allergies Allergy Verified 10/17/23 10:33 Consultations 10/17/23 15:51 Consult Hospitalist Routine Procedures Performed Operation Date: 10/17/23 11:15 Actual Procedures p L3-S1 Decompression and Fusion, Spinal Cord Monitoring(Not Applicable) - Willy Brooke DO Ordered Studies 10/17/23 11:15 [place] lumbar spine 2-3V Routine Hospital Course (1) Neurogenic claudication due to lumbar spinal stenosis: Patient underwent multilevel lumbar decompression fusion tolerated as well as taken to orthopedic floor postoperatively. Postoperatively progressed appropriately. Pain well controlled. Extra strength testing. LADONNA drain decreasing appropriately. Simply discharged home. Discharge orders instructions from the chart for further review. Total Time Total Time Spent Total Time Spent (In Minutes): 20 minutes Discharge Plan Discharge Items Patient Disposition: Home - Self-Care Reason For Visit: POSTOP Discharge Diagnosis: Lumbar spinal stenosis with neurogenic claudication Activity: As commented below Non-emergency contact: Primary Care Provider Call non-emergency contact if: you have any medication questions Follow-up/Referrals: PCP,THEO [Primary Care Provider] - Diet: Regular Addtl Attending Provider Instructions: ACTIVITY RECOMMENDATIONS: SELF CARE INSTRUCTIONS AFTER THORACIC/LUMBAR FUSIONS 1. You may walk to your tolerance. It is good exercise for your legs and back. Expect some back and intermittent leg aches and pains. 2. You may perform "counter-top" level activities (make a sandwich, huber with a project, etc.). 3. No bending or lifting of more than 10 pounds or back twisting of any nature (roll like a log when turning in bed). 4. You may ride in a car for 20-30 minutes at a time. No driving until after your first visit with your doctor. 5. Frequent changes of position and restricting sitting to 30 minutes at a time will help limit the amount of back spasms and stiffness you may experience. 6. You may discontinue the use of ambulatory aids (cane, crutches, etc.) once your strength and confidence allow. 7. You may shot grinder operator the shower and let water strike your incision when you arrive home at least once daily. Do not take a tub bath, sit in a hot tub or go into a swimming pool until after your first recheck in the office. SPECIAL CARE INSTRUCTIONS: VERY IMPORTANT TO READ AND REVIEW A. Your surgical incision has been closed with a cosmetic suture under the skin that will dissolve in about 6 weeks. In 14 days, you can use a pair of clean scissors and cut the suture that is left outside of the skin at the ends of your incision. 1. The small skin tapes can be removed 7 days after surgery if they have not fallen off by that point. 2. You may keep the wound open to air as much as possible to promote healing after post-op day number 5 unless told otherwise by your doctor. 3. If you think the wound looks like it is becoming infected (redness or worsening drainage) and/or you are experiencing fever, chill or worsening back pain and muscle spasms, contact the office so that we may evaluate you as soon as possible. B. Complications are uncommon, but please contact us if you have any signs or symptoms of: 1. wound infection (fever higher than 102.5 degrees F, redness, separation of wound, drainage, or increasing pain from the incision) 2. blood clots in legs (pain, swelling, redness and warmth in legs) 3. urinary tract infection (fever higher than 102.5 degrees F, burning upon urination or increased frequency of urination) 4. nerve problems (inability to walk on your toes or heels, numbness, loss of bowel or bladder control) 5. any other symptoms that concern you C. Please call the office at if you have any concerns or questions about your operation or recovery. D. No smoking! Smoking drastically decreases the chance of a solid fusion. E. Do not take any anti-inflammatory medications (Indocin, Advil, Motrin, Aspirin, Naprosyn, etc.) as these may inhibit the chance of a solid fusion. Tylenol is okay to take for pain. MANAGING PAIN AFTER SPINAL SURGERY 1. Narcotic medication is intended for short-term use and will be provided for surgical pain. Surgical pain usually lasts for a period of 4-6 weeks. Narcotic medication includes Percocet, Vicodin, Darvocet, Tylenol #3 or Lortab. 2. Longer-term pain is more appropriately treated with non-narcotic medication such as Tylenol ES. 3. Muscle spasm is not appropriately treated with narcotics. Muscle relaxers such as Soma, Flexeril or Skelaxin can be used along with Tylenol ES. 4. Remember that we all live with some "aches and pains". This is not unusual or uncommon after an injury or as we get older. a. Back pain is expected and may include muscle spasms for 4 to 6 weeks after surgery. The pain should gradually improve. If the pain worsens for no apparent reason, please contact the office. b. Intermittent leg pain may also be experienced and should not be concerned about unless it worsens for no apparent reason. If so, please contact the office. 5. We will provide appropriate medication within the normal guidelines of their prescribed use. We will also be very cautious and aware of potential abuse and extended duration of patients' medication needs. a. Pain medications are for your comfort and to assist with sleep and rest so that the tissue can heal. They are not provided in order to return to normal activity and should not be used through the day. To do so or worsening pain at night can result from ongoing tissue damage and development of tolerance to the prescribed medicine. 6. Please allow 2-3 days to process refills. Prescriptions will not be mailed but must be picked up at the office. FOLLOW UP VISIT: Keep your scheduled follow-up appointment. Any questions, please call the office at . Pending Studies at Discharge: No Stand-Alone Forms: [facility], Smoking Cessation Medications and DC Order Prescriptions: New tramadol 50 mg tablet 50 mg PO Q6H PRN (Reason: pain, moderate) Qty: 30 0RF oxycodone 5 mg tablet 5 mg PO Q6H PRN (Reason: pain) Qty: 30 0RF Continued lamotrigine 200 mg Tablet 200 mg PO QAM fenofibrate micronized 200 mg Capsule 200 mg PO QAM cetirizine [Zyrtec] 10 mg Tablet,Chewable 10 mg PO DAILY PRN (Reason: Congestion) acetaminophen [Tylenol Extra Strength] 500 mg Tablet 1,000 mg PO QAM Discontinued meloxicam 15 mg Tablet 15 mg PO DAILY Patient Comments: already stopped for dos Discharge Orders: Discharge Order (Routine); Ordered 10/20/23 Ordered By: Willy Brooke Admission Data Admit Date/Time: 10/17/23 14:33 Attending Provider: Willy Brooke Admit Provider: Willy Brooke Primary Care Provider: PCP,NO Other Providers: Pilar Mccray; Ryland Castillo
== END 2023-10-20 13:26 | disposition home or self-care (01) | DRG 455 ==
LOC: ASU 09:36 → 3E 14:33 → SUATTDRO 14:33